=== PATIENT | female | born 1945 | race Caucasian/White ===

== ENCOUNTER 2024-02-07 15:23 | Outpatient (AMB) | payer MEDICARE, OTHER, SELFPAY ==
--- NOTE | 2024-02-07 15:26 | HO.NEPHOV_ITS ---
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 Accompanied by: Self / Same As Patient Allergies clonidine Allergy (Unknown, Verified 02/07/24 15:30) Unknown gabapentin [From Neurontin] Allergy (Unknown, Verified 02/07/24 15:30) Unknown hydromorphone [From Dilaudid] Allergy (Unknown, Verified 02/07/24 15:30) Unknown midazolam [From Versed] Allergy (Unknown, Verified 02/07/24 15:30) Unknown povidone-iodine [From Betadine] Allergy (Unknown, Verified 02/07/24 15:30) Unknown Medication List - Last Reconciled 02/07/24 by Alberto Yan MD amlodipine 10 mg PO DAILY aspirin 81 mg PO DAILY lisinopril-hydrochlorothiazide 20-12.5 mg 1 tab PO DAILY metformin 500 mg PO BID HPI Comments Details: . Irene is a pleasant 78-year-old man with history of hypertension and diabetes mellitus. A baseline creatinine is around 0.9 mg/dL. In December of 2023 creatinine was 1.1 mg/dL with a EGFR of 51 mL/minute. During this time she had a UTI. This was treated with antibiotics. The repeat serum creatinine 0.9. She has been referred for further evaluation of CKD and hypertension. She has a history of clear cell cystadenoma of the ovary. She underwent total abdominal hysterectomy with bilateral salpingo-oophorectomy in 2001. History of urethral reimplantation. She is undergone partial colectomy as well. [facility] Surgical History History of partial colectomy History of total abdominal hysterectomy S/P ureteral reimplantation History of tonsillectomy H/O breast biopsy H/O colonoscopy (~06/2011) Social History (Updated 02/07/24 @ 15:30 by MARIELOS Guy) Patient Tobacco Use Status: Never used Tobacco Review of Systems Const Denies fever(s) and Denies weight loss Card Denies chest pain Resp Denies cough and Denies hemoptysis GI Denies abdominal pain, Denies diarrhea and Denies nausea Musc Denies back pain Neuro Denies focal weakness Physical Exam Vital Signs: Last Vital Signs Pulse 88 02/07/24 15:27 BP 112/48 L 02/07/24 15:27 Pulse Ox 97 02/07/24 15:27 Oxygen Delivery Method Room Air 02/07/24 15:27 BMI result Body Mass Index 22.7 Const General: comfortable; No acute distress Orientation/consciousness: patient oriented x3 Eyes General: appearance normal, both eyes and all related structures Visual Maloney: normal visual maloney by confrontation Neck Neck: Yes supple and Yes no JVD Resp Effort & Inspection: normal respiratory effort and respiratory effort not decreased Auscultation: rhonchi Cardio Palpation: no palpable S3 and no palpable S4 Heart sounds: no rubs GI Inspection: Yes normal to inspection Palpation (GI): Soft to palpation Percussion: Yes normal to percussion Auscultation: normal bowel sounds General: Yes no CVA tenderness Back/Spine/Pelvis Back: no CVA tenderness Skin General skin exam: no petechiae and no purpura Neuro General: patient oriented x3 and no focal motor deficits Extrem General: No clubbing and No edema Results Reviewed Results Reviewed: All labs from [facility] was reviewed Recent creatinine 0.9 Urinalysis was benign Nephrology Results: No Data to Display Assessment & Plan Assessment & Plan (1) CKD (chronic kidney disease): Code(s): N18.9 - Chronic kidney disease, unspecified Category: Medical (2) HTN (hypertension): Code(s): I10 - Essential (primary) hypertension Category: Medical Plan . Irene is a pleasant 78-year-old year old woman with a history of longstanding hypertension diabetes mellitus. She sustained JIM due to hypoperfusion. 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 At present renal function is close to baseline. The hypoperfusion was most likely due to volume depletion and relative low blood pressure. Currently the blood pressure is rather low. She is currently on lisinopril hydrochlorothiazide 20/12.5 TWO tablets a day. With your permission I will decrease this to 1 tablet today. The blood pressure should improve after lowering Recheck renal panel in the next few weeks. I will keep you updated with her progress. Thank you . Coding Level of Care Code New Pt Level 4 (89016) Diagnoses CKD (chronic kidney disease) N18.9 HTN (hypertension) I10
[2024-02-07 15:27] VITALS: BP 112/48; PULSE 88; O2SAT 97; BMI 22.7
== END 2024-02-07 15:43 | disposition home or self-care (01) ==
PROVIDERS: PCP Family Medicine; Referring Provider Family Medicine; Visit Provider Internal Medicine Hypertension Specialist
DX: I12.9 Hypertensive chronic kidney disease with stage 1 through stage 4 chronic kidney disease, or unspecified chronic kidney disease (principal); N18.9 Chronic kidney disease, unspecified
CPT/HCPCS: 99204

== ENCOUNTER → 2024-02-07 15:23 | Outpatient (BNVA) | payer MEDICARE, OTHER, SELFPAY | PROVIDERS: PCP Family Medicine; Referring Provider Family Medicine; Visit Provider Internal Medicine Hypertension Specialist | DX: I12.9 Hypertensive chronic kidney disease with stage 1 through stage 4 chronic kidney disease, or unspecified chronic kidney disease (principal); N18.9 Chronic kidney disease, unspecified; Z79.4 Long term (current) use of insulin | CPT/HCPCS: 99202 ==